=== PATIENT | male | born 1980 | race Caucasian/White ===

== ENCOUNTER 2020-07-16 05:44 | Day surgery (SDC) | payer BC ==
[2020-07-15 10:29] VITALS: BMI 27.7
[2020-07-16] MEDS ORDERED: Thrombin 5000 UNITS/5 ML VIAL ONE (06:22)
[2020-07-16] MEDS ORDERED: EPINEPHrine 1 MG/ML AMP ONE (06:22)
[2020-07-16] MEDS ORDERED: Bupivacaine PF 0.5% 30 ML VIAL ONE (06:22)
[2020-07-16] MEDS ORDERED: Fentanyl 250 MCG/5 ML VIAL ONE (06:54)
[2020-07-16] MEDS ORDERED: Glycopyrrolate 0.2 MG/ML 5 ML SYRINGE ONE (06:59)
[2020-07-16] MEDS ORDERED: Dexamethasone 20 MG/5 ML VIAL ONE (06:59)
[2020-07-16] MEDS ORDERED: PROPOFOL 200 MG/20 ML VIAL ONE (06:59)
[2020-07-16] MEDS ORDERED: Ketorolac Tromethamine 30 MG/ML VIAL ONE (06:59)
[2020-07-16] MEDS ORDERED: Rocuronium Bromide 10 MG/ML (10ML VIAL) ONE (06:59)
[2020-07-16] MEDS ORDERED: Ondansetron PF 4 MG/2 ML Vial ONE (06:59)
[2020-07-16] MEDS ORDERED: Lidocaine 1% PF 5 ML VIAL ONE (06:59)
[2020-07-16] MEDS ORDERED: Tamsulosin HCl 0.4 MG CAP ONE (09:53)
[2020-07-16] MEDS ORDERED: HYDROcodone/Acetaminophen 5/325 mg Tablet ONE (11:37)
== END 2020-07-16 12:00 | disposition home or self-care (01) ==
LOC: SDC 05:44
PROVIDERS: ATTEND Neurological Surgery
PROC: 0SB20ZZ Excision of Lumbar Vertebral Disc, Open Approach (ICD-10-PCS; principal; 2020-07-16)
PROC: 01NB0ZZ Release Lumbar Nerve, Open Approach (ICD-10-PCS; principal; 2020-07-16)
DX: M51.17 Intervertebral disc disorders with radiculopathy, lumbosacral region (principal); G89.29 Other chronic pain; Z87.891 Personal history of nicotine dependence; Z88.5 Allergy status to narcotic agent
CPT/HCPCS: 76000; J0171; J0690; J1100; J1885; J2405; J2704; J3010; J3370; S0020